=== PATIENT | female | born 1960 | race Caucasian/White ===

== ENCOUNTER 2019-03-24 21:22 | Emergency (ER) | payer OTHER ==
[2019-03-24 21:30] VITALS: BP 128/96
[2019-03-24 22:59] LABS: Rapid Strep Molecular Negative (Negative)
--- NOTE | 2019-03-24 23:04 | ED ---
Throat Pain/Nasal Congestion - HPI Summary HPI Summary: 58-year-old female presents with sore throat for the past couple days. She is considered that she is concerned that she has strep. Has not been around anyone who has strept. She states she may have a fever. Denies any sinus congestion. She denies any abdominal pain. No nausea or vomiting. She denies any medical conditions. She has been able to eat and drink as normal. She has been taking Tylenol for the pain. - History of Current Complaint Chief Complaint: EDThroatPain Time Seen by Provider: 03/24/19 22:32 - Allergies/Home Medications Allergies/Adverse Reactions: Allergies Allergy/AdvReac Type Severity Reaction Status Date / Time erythromycin base Allergy See Comment Verified 03/24/19 21:28 PMH/Surg Hx/FS Hx/Imm Hx Endocrine/Hematology History: Denies: Hx Anticoagulant Therapy Respiratory History: Denies: Hx Asthma Infectious Disease History: No Infectious Disease History: Denies: Traveled Outside the [place] in Last 30 Days - Family History Known Family History: Positive: Non-Contributory - Social History Substance Use Type: Reports: None Smoking Status (MU): Never Smoked Tobacco Review of Systems Negative: Fever Positive: Sore Throat Negative: Chest Pain Negative: Shortness Of Breath All Other Systems Reviewed And Are Negative: Yes Physical Exam Triage Information Reviewed: Yes Vital Signs On Initial Exam: Initial Vitals Temp Pulse Resp BP Pulse Ox 97.6 F 94 15 128/96 97 03/24/19 21:25 03/24/19 21:25 03/24/19 21:25 03/24/19 21:25 03/24/19 21:25 Vital Signs Reviewed: Yes Appearance: Positive: Well-Appearing Skin: Positive: Warm, Dry Head/Face: Positive: Normal Head/Face Inspection Eyes: Positive: Normal, EOMI, CARITO, Conjunctiva Clear ENT: Positive: Pharyngeal erythema, TMs normal, Tonsillar exudate - right, Uvula midline, Other - soft palate symmetric. Negative: Trismus, Muffled voice Respiratory/Lung Sounds: Positive: Clear to Auscultation, Breath Sounds Present Cardiovascular: Positive: Normal, RRR Abdomen Description: Positive: Nontender, Soft Bowel Sounds: Positive: Present Musculoskeletal: Positive: Normal Neurological: Positive: Normal Psychiatric: Positive: Normal Procedures - Sedation Patient Received Moderate/Deep Sedation with Procedure: No Diagnostics - Vital Signs Vital Signs Temp Pulse Resp BP Pulse Ox 03/24/19 21:25 97.6 F 94 15 128/96 97 - Laboratory Lab Results: Lab Results 03/24/19 Range/Units 22:40 Group A Strep Rapid Negative (Negative) Lab Statement: Any lab studies that have been ordered have been reviewed, and results considered in the medical decision making process. EENT Course/Dx - Course Course Of Treatment: 58-year-old female presents with sore throat for the past couple days. She is considered that she is concerned that she has strep. Has not been around anyone who has strept. She states she may have a fever. Denies any sinus congestion. She denies any abdominal pain. No nausea or vomiting. She denies any medical conditions. She has been able to eat and drink as normal. She has been taking Tylenol for the pain. On exam left tonsil has exudate. Uvula midline. Soft palate symmetric. Strep negative. We 'll treat supportively as likely viral. Patient understands and agrees plan. - Differential Diagnoses Differential Diagnoses: Pharyngitis, URI/Bronchitis, Other - stept - Diagnoses Provider Diagnoses: Pharyngitis Discharge ED - Sign-Out/Discharge Documenting (check all that apply): Patient Departure - Discharge Plan Condition: Good Disposition: HOME Patient Education Materials: Pharyngitis (ED) Referrals: No Primary Care PhysNOPCP [Primary Care Provider] - Additional Instructions: take tyenlol every 6 hours for pain drink plenty of fluids Return to ED if develop any new or worsening symptoms - Billing Disposition and Condition Condition: GOOD Disposition: Home
== END 2019-03-24 23:17 | disposition home or self-care (01) ==
LOC: ED 21:22
DX: J02.9 Acute pharyngitis, unspecified (principal)
CPT/HCPCS: 87651; 99282